=== PATIENT | male | born 1990 | race Caucasian/White ===

== ENCOUNTER 2019-03-12 06:01 | Emergency (ER) | payer OTHER ==
[~2019-03-12] VITALS: Ht 180.3 cm; Wt 88.5 kg
[2019-03-12] MEDS ORDERED: NORCO 5-325 TA1 EAC1 PO (07:20)
[2019-03-12 07:50] VITALS: BP 130/47
== END 2019-03-12 07:43 | disposition home or self-care (01) ==
LOC: M.ERS 06:01
DX: S93.491A Sprain of other ligament of right ankle, initial encounter (principal); X50.1XXA Overexertion from prolonged static or awkward postures, initial encounter; Y93.64 Activity, baseball; Y92.89 Other specified places as the place of occurrence of the external cause; Y99.8 Other external cause status

== ENCOUNTER 2019-09-12 18:44 | Emergency (ER) | payer OTHER ==
[~2019-09-12] VITALS: Ht 177.8 cm; Wt 86.2 kg
[~2019-09-12 18:44] MED LIST: NORCO 5-325 TA1 EAC1 PO
[2019-09-12] MEDS ORDERED: IBUPROFEN 800800 MG PO (22:40)
[2019-09-12] MEDS ORDERED: NORCO 5-325 TA1 EAC1 PO (22:40)
[2019-09-12 23:11] VITALS: BP 112/68
== END 2019-09-12 23:11 | disposition home or self-care (01) ==
LOC: M.ERS 18:44
DX: S22.32XA Fracture of one rib, left side, initial encounter for closed fracture (principal); F17.210 Nicotine dependence, cigarettes, uncomplicated; W10.9XXA Fall (on) (from) unspecified stairs and steps, initial encounter; Y92.89 Other specified places as the place of occurrence of the external cause; Y93.01 Activity, walking, marching and hiking; Y99.8 Other external cause status

== ENCOUNTER 2020-06-15 17:56 | Emergency (ER) | payer OTHER ==
[~2020-06-15] VITALS: Ht 180.3 cm; Wt 88.5 kg
[~2020-06-15 17:56] MED LIST changes: +IBUPROFEN 800800 MG PO
[2020-06-15 19:44] VITALS: BP 117/72
== END 2020-06-15 19:45 | disposition home or self-care (01) ==
LOC: M.ERS 17:56
DX: S60.041A Contusion of right ring finger without damage to nail, initial encounter (principal); S60.051A Contusion of right little finger without damage to nail, initial encounter; W21.09XA Struck by other hit or thrown ball, initial encounter; Y93.89 Activity, other specified; Y92.89 Other specified places as the place of occurrence of the external cause; Y99.8 Other external cause status

== ENCOUNTER 2020-07-07 15:24 | Emergency (ER) | payer OTHER ==
[~2020-07-07] VITALS: Ht 180.3 cm; Wt 88.5 kg
[2020-07-07] MEDS ORDERED: CELEXA 20 MG TA20 MG PO (16:50)
[2020-07-07] MEDS ORDERED: BUTALB-APAP-CA1 EACH PO (19:52)
[2020-07-07 19:58] VITALS: BP 136/78
== END 2020-07-07 19:58 | disposition home or self-care (01) ==
LOC: M.ERS 15:24
DX: S00.83XA Contusion of other part of head, initial encounter (principal); R42 Dizziness and giddiness; Z87.820 Personal history of traumatic brain injury; Z79.899 Other long term (current) drug therapy; Y04.0XXA Assault by unarmed brawl or fight, initial encounter; Y93.89 Activity, other specified; Y92.89 Other specified places as the place of occurrence of the external cause; Y99.9 Unspecified external cause status